=== PATIENT | female | born 1960 | race Caucasian/White ===

== ENCOUNTER → 2022-08-08 | Outpatient (CLI) | payer OTHER | LOC: M SOG 14:33 | PROVIDERS: ATTEND Orthopaedic Surgery Hand Surgery | DX: M79.644 Pain in right finger(s) (principal); M25.531 Pain in right wrist ==

== ENCOUNTER → 2022-09-27 | Outpatient (CLI) | payer BC ==
[~2022-09-27] MED LIST: ACET650T61 PO; CHEL50TA2 PO; FENO160T10 PO; K2 P1TAB PO; LEVO112T2 PO; MAGN400C PO; PROBCAP14 PO; VALS1TAB66 PO; VITA500C24 PO
== END ==
LOC: M LABSMTC 08:25
PROVIDERS: ATTEND Anesthesiology
DX: Z01.818 Encounter for other preprocedural examination (principal); Z11.52 Encounter for screening for COVID-19

== ENCOUNTER 2022-10-02 06:03 | Day surgery (SDC) | payer BC ==
[~2022-10-02] VITALS: Ht 172.7 cm; Wt 128.4 kg
[2022-10-02] MEDS ORDERED: LR 1,000 ML IV SCH ×2 (06:40→09:20)
[2022-10-02] MEDS ORDERED: ROPIvacaine 0.5% 30ML VIAL PN ONE (07:10)
[2022-10-02] MEDS ORDERED: fentaNYL 100 MCG/2 ML INJECTION IV PRN ×2 (07:10→09:20)
[2022-10-02] MEDS ORDERED: LIDOCAINE 1% SDV 5ML VIAL PN ONE (07:10)
[2022-10-02] MEDS ORDERED: MIDAZOLAM INJ 2MG/2ML VIAL IV PRN (07:10)
[2022-10-02] MEDS ORDERED: EPINEPHrine INJ 1 MG/ML 1ML AMP PN ONE (07:10)
[2022-10-02] MEDS ORDERED: ceFAZolin 2 GM/D5W 50 ML IV BAG As Ordered ONE (07:32)
[2022-10-02] MEDS ORDERED: LIDOCAINE 2% 100MG/5ML SDV (FOR ANES.) As Ordered ONE (08:00)
[2022-10-02] MEDS ORDERED: MIDAZOLAM INJ 2MG/2ML VIAL As Ordered ONE (08:00)
[2022-10-02] MEDS ORDERED: ONDANSETRON 4MG 2ML VIAL As Ordered ONE (08:00)
[2022-10-02] MEDS ORDERED: propofoL 200 MG/20 ML VIAL As Ordered ONE (08:00)
[2022-10-02] MEDS ORDERED: fentaNYL 100 MCG/2 ML INJECTION As Ordered ONE (08:00)
[2022-10-02] MEDS ORDERED: BUPIVACAINE HCL 0.25% 30ML VIAL As Ordered ONE (08:48)
[2022-10-02] MEDS ORDERED: BACITRACIN OINTMENT 30GM TUBE As Ordered ONE (08:58)
[2022-10-02] MEDS ORDERED: KETOROLAC 60MG 2ML VIAL As Ordered ONE (09:04)
[2022-10-02] MEDS ORDERED: oxyCODONE 5MG TAB PO PRN (09:20)
[2022-10-02] MEDS ORDERED: HYDROMORPHONE HCL 0.5 MG/ 0.5 ML SYRINGE IV PRN (09:20)
[2022-10-02] MEDS ORDERED: ONDANSETRON 4MG 2ML VIAL IV PRN (09:20)
[2022-10-02] MEDS ORDERED: PERC5TAB12 PO (09:25)
[2022-10-02 10:45] VITALS: BP 148/79
== END 2022-10-02 11:01 | disposition home or self-care (01) ==
LOC: M SDC 06:03
PROVIDERS: ATTEND Orthopaedic Surgery Hand Surgery
DX: M18.12 Unilateral primary osteoarthritis of first carpometacarpal joint, left hand (principal); I10 Essential (primary) hypertension; E03.9 Hypothyroidism, unspecified; K21.9 Gastro-esophageal reflux disease without esophagitis; K57.92 Diverticulitis of intestine, part unspecified, without perforation or abscess without bleeding; I34.1 Nonrheumatic mitral (valve) prolapse; F41.9 Anxiety disorder, unspecified; F32.A Depression, unspecified; Z79.899 Other long term (current) drug therapy; Z79.890 Hormone replacement therapy
CPT/HCPCS: 25447; 64450; 76000; 88300; C1713; J0690; J1100; J1885; J2250; J2405; J3010; S0020

== ENCOUNTER → 2022-10-12 | Outpatient (CLI) | payer BC ==
[~2022-10-12] MED LIST changes: +PERC5TAB12 PO
== END ==
LOC: M SOG 09:39
PROVIDERS: ATTEND Physician Assistant
DX: M18.12 Unilateral primary osteoarthritis of first carpometacarpal joint, left hand (principal)